=== PATIENT | female | born 1995 | race Caucasian/White ===

== ENCOUNTER 2021-12-04 06:53 | Outpatient (CLI) | payer OTHER ==
--- NOTE | 2021-12-04 11:04 | Ultrasound Report ---
PROCEDURE: Abdomen Complete INDICATIONS: ABD BLOATING, HIST OF OVARIAN CYST TECHNIQUE: Real-time scanning was performed of the abdominal and retroperitoneal organs, with image documentatio n. COMPARISON: None. FINDINGS: Liver: Liver is normal in size and homogeneous in echotexture. Gallbladder: The gallbladder appears normal without gallstones or gallbladder wall thickening. There is no pericholecystic fluid. Biliary ducts: Intrahepatic bile ducts are non-dilated. Extrahepatic bile duct caliber measures 4 m m. Normal is 6-7 mm or less in diameter, or 10 mm or less post-cholecystectomy. Pancreas: Visualized portions of the pancreas are sonographically normal. Spleen: Spleen is normal in size and homogeneous in echotexture. Kidneys: Kidneys are normal in size and echotexture. Right kidney measures 12 cm long; left kidney measures 11.4 cm long. No hydronephrosis or nephrolithiasis. No solid masses. Aorta: Visualized aorta is normal in caliber at less than 3 cm. Iliacs: Proximal common iliac arteries are normal in caliber at less than 2.5 cm. IVC: Intrahepatic inferior vena cava is patent. Miscellaneous: No free abdominal fluid. IMPRESSION: Abdominal ultrasound is within normal limits. Reviewed by: Justus Villarreal MD on 12/04/2021 11:03 AM PDT Approved by: Justus Villarreal MD on 12/04/2021 11:03 AM PDT Station ID: [id number]
--- NOTE | 2021-12-04 12:35 | Ultrasound Report ---
PROCEDURE: Pelvic w/Transvaginal INDICATIONS: ABD BLOATING, HIST OF OVARIAN CYST TECHNIQUE: Real-time scanning was performed of the pelvic organs, with image documentation. Additional endovagi nal scanning was necessary due to incomplete visualization of the adnexal and endometrial structures by transabdominal scanning. COMPARISON: None. FINDINGS: Uterus: Uterus is anteverted and normal in size at 5.7 x 2.8 x 4.8 cm. The myometrium is homogeneou s. The endometrium measures 3.5 mm in combined thickness. Intrauterine device in place Ovaries: The right ovary measures 2.7 x 1.5 x 3.0 cm, with a calculated ovarian volume of 6.3 cc. T he left ovary measures 3.0 x 1.6 x 1.70 cm, with a calculated ovarian volume of 4.3 cc. The ovaries have a normal sonographic appearance. Simple right ovarian cyst measures 1.8 x 1.3 x 1.7 cm. No adn exal masses are seen. Minimal incidental fluid in the endometrial cavity. Other: No pathologic free abdominal or pelvic fluid. IMPRESSION: Intrauterine device in good position. Simple right ovarian cyst, 1.8 cm Reviewed by: Nicanor Marquis MD on 12/04/2021 11:33 AM TRAVON Approved by: Nicanor Marquis MD on 12/04/2021 11:33 AM TRAVON Station ID: [id number]
== END 2021-12-04 06:54 | disposition home or self-care (01) ==
LOC: DI 06:53
PROVIDERS: ATTEND Nurse Practitioner
DX: N83.291 Other ovarian cyst, right side (principal); R14.0 Abdominal distension (gaseous); Z97.5 Presence of (intrauterine) contraceptive device

== ENCOUNTER 2022-10-22 14:15 | Outpatient (CLI) | payer OTHER ==
[2022-10-22 14:28] LABS: HCT - HEMATOCRIT 37.7 % (37.0-47.0); HGB - HEMOGLOBIN 12.8 g/dL (12.0-16.0); MEAN CORPUSCULAR HEMOGLOBIN 32.2 pg (27.0-31.0); MEAN PLATELET VOLUME 9.4 fL (7.9-10.8); RED BLOOD COUNT 3.97 10^6/uL (4.20-5.40); RED CELL DISTRIBUTION WIDTH 11.7 % (12.0-15.0); WHITE BLOOD COUNT 7.9 x10^3/uL (4.8-10.8)
[2022-10-22 15:03] LABS: THYROID STIMULATING HORMONE 1.59 uIU/mL (0.34-5.60)
[2022-10-22 15:09] LABS: FERRITIN 39.5 ng/mL (11.0-306.8)
[2022-10-22 20:41] LABS: ESTIMATED AVERAGE GLUCOSE 105 mg/dL (70-100); HEMOGLOBIN A1c% 5.3 % (4.27-6.07)
[2022-10-23 21:07] LABS: ANTINUCLEAR ANTIBODIES IFA Negative (.)
== END 2022-10-22 14:16 | disposition home or self-care (01) ==
LOC: LAB 14:15
PROVIDERS: ATTEND Nurse Practitioner
DX: R53.83 Other fatigue (principal)
CPT/HCPCS: 36415; 82728; 83036; 84443; 85027; 86038